=== PATIENT | female | born 1945 | race Caucasian/White ===

== ENCOUNTER 2016-10-24 09:36 | Emergency (ER) | payer MEDICARE ==
[~2016-10-24] VITALS: Ht 152.4 cm; Wt 80.0 kg
[~2016-10-24 09:36] MED LIST: AMLO5TAB2 PO; ASPI81TA81; BUPR150CR PO; CLIN1CAP6 PO; FLUT1SPR5 EACH NARE; LISI-515 PO
[2016-10-24 09:38] VITALS: BP 157/80; PULSE 90; RESP 20; TEMP 97.9; O2SAT 96
--- NOTE | 2016-10-24 11:32 | PD ---
HPI Chief Complaint: Skin Problem Time Seen by Provider: 10:41 Travel History International Travel<30 days: No Contact w/Intl Traveler<30days: No Traveled to known affect area: No History of Present Illness HPI This patient came in for evaluation of a wound on her right leg. 3 weeks ago she scraped it on a wheelchair and got a skin tear. She ignored it for one week and then went to an urgent care center and got a prescription for clindamycin for 10 days which she just completed. She has a wound care appointment in 2 days coming up [facility] Past Medical History Arthritis: Yes Asthma: Yes Cancer: No Cardiovascular Problems: Yes High Cholesterol: Yes Diminished Hearing: No Endocrine: No Gastrointestinal Disorders: Yes GERD: Yes Glaucoma: Yes Genitourinary: No Headaches: Yes Hepatitis: No Hiatal Hernia: No Hypertension: Yes Immune Disorder: No Implanted Vascular Access Dvce: No Musculoskeletal: Yes Neurologic: Yes Psychiatric: No Reproductive: No Respiratory: Yes Menopausal: Yes Past Surgical History Abdominal Surgery: No Body Medical Devices: CERVICAL TITANIUM, POSTS FOR IMPLANTS IN MOUTH Cardiac Surgery: No Ear Surgery: No Endocrine Surgery: No Eye Surgery: No Genitourinary Surgery: No Gynecologic Surgery: No Neurologic Surgery: Yes (CERVICAL FUSION) Oral Surgery: Yes (TEETH IMPLANTS) Tonsillectomy: Yes Other Surgery: Yes Family History Family Myocardial Infarction: Yes (FATHER AT 48) Social History Alcohol Use: Yes (WEEKENDS) Tobacco Use: Yes (2-4 cig daily) Substance Use: No Allergies-Medications (Allergen,Severity, Reaction): Coded Allergies: No Known Allergies (Unverified , 10/24/16) Reported Meds & Prescriptions Reported Meds & Active Scripts Active Reported Aspir-81 (Aspirin) 81 Mg Tabdr Wellbutrin SR 12 HR (Bupropion HCl) 150 Mg Tab 150 Mg PO Q12HR Amlodipine (Amlodipine Besylate) 5 Mg Tab 5 Mg PO DAILY Lisinopril 20 Mg Tab 20 Mg PO DAILY Flonase Nasal [place] (Fluticasone Nasal [place]) 50 Mcg/Act [place] 50 Mcg EACH NARE BID Review of Systems General / Constitutional: No: Fever Eyes: No: Diploplia Cardiovascular: No: Chest Pain or Discomfort Respiratory: No: Cough Physical Exam Narrative Psych: Normal mood and affect. Normal insight and judgment. SKIN: Focused skin assessment reveals no rash or ulcers. Skin is warm and dry. Palpation shows no induration or nodules. She does have a wound on the outside of the right lower leg. It is an old skin tear. There is no sign of infection or drainage or anything to culture. Data Data Last Documented VS Vital Signs Date Time Temp Pulse Resp B/P Pulse Ox O2 Delivery O2 Flow Rate FiO2 10/24/16 09:38 97.9 90 20 157/80 96 Room Air MDM Medical Decision Making Medical Screen Exam Complete: Yes Emergency Medical Condition: Yes Medical Record Reviewed: Yes Differential Diagnosis Skin tear, abrasion, abscess Narrative Course I have reviewed the patient's electronic medical record. Nothing emergent to do this time. There is no sign of infection. She has wound care follow-up in 2 days. We will redress the area with Xeroform and Telleopoldo and Sumit Diagnosis Primary Impression: Wound of right leg Qualified Code: S81.801A - Wound of right lower extremity, initial encounter Additional Instructions: The patient was advised to follow up with their physician and return if they worsen. Med/Other Pt SpecificInfo: Other Disposition: 01 DISCHARGE HOME Condition: Stable Franck Berman MD Oct 24, 2016 11:32
[2016-10-26] MEDS ORDERED: IBUP800T23 PO (15:00)
[2016-10-26] MEDS ORDERED: RANI150T PO (15:01)
[2016-11-02] MEDS ORDERED: METR500T10 PO (14:37)
[2016-11-02] MEDS ORDERED: VANC125C3 PO (14:37)
== END 2016-10-24 11:57 | disposition home or self-care (01) ==
LOC: NEPE 09:36
DX: S81.801A Unspecified open wound, right lower leg, initial encounter (principal); W26.8XXA Contact with other sharp object(s), not elsewhere classified, initial encounter; E78.00 Pure hypercholesterolemia, unspecified; I10 Essential (primary) hypertension; Z79.82 Long term (current) use of aspirin
CPT/HCPCS: 99282